=== PATIENT | male | born 1985 | race Caucasian/White ===

== ENCOUNTER 2018-06-17 12:50 | Emergency (ER) | payer MEDICAID, SELFPAY ==
[2018-06-17 12:52] VITALS: BP 148/97; PULSE 92; RESP 20; TEMP 36.7; O2SAT 98; BMI 23.0
--- NOTE | 2018-06-17 13:22 | ED.VISSUMM ---
- ER Visit Summary Date of Service: 06/17/18 Chief Complaint: Recently moved and no medication for 5 days History of Present Illness: The patient is a 33 M who was seen at [facility] and sent to the emergency room because of concern for benzodiazepine withdrawal. He has not taken any Xanax for 5 days. He is not taking the Wellbutrin and Adderall for the past 5 days as well. He just recently moved from [place]. He has not established with a doctor or new therapist. He states he feels as if his chest acrylics bloat and he complains of palpitations shortness of breath and feeling anxious. He denies headache, visual, ocular auditory symptoms. He denies any paresthesia, anesthesia motor weeks. He denies any GI symptoms. Please read written note for complete detail Physical Examination: Vital signs are noted and blood pressure slightly elevated at 148/97. Speech is slightly pressured. HEENT exam is unremarkable. Heart is regular without murmur, gallop or rub. S1 and S2 are normal. Lungs are clear to auscultation with good movement of air bilaterally. Abdomen soft nontender. He has multiple bruises upper and lower extremity, which he reports secondary to bumping into things since he just moved. Patient is alert and oriented ?3. Motor is 5 over 5. Sensory is intact. DTRs are symmetric with no clonus or Babinski sign. Cranial 2 through 12 are intact. Cerebellar testing is normal. Test Results: None Emergency Department Course and Treatment: Refill prescription for Xanax and Wellbutrin Treatment Plan: Prescription for Xanax, Wellbutrin and referral to counseling center Disposition: Discharged home with mother Impression: 1. Anxiety reaction secondary to medication withdrawal 2. History of depression anxiety 3. History of ADD This note was generated with [employer] dictation software. It may contain incorrect words, spelling, and punctuation that were not noted in review of the chart prior to signing ED Disposition - Plan for ED Patient: Disposition: Home or Assisted Living Chief Complaint: Anxiety Instructions: ED Stress React Prescriptions: buPROPion SR [Wellbutrin SR (150mg tablets)] 300 mg PO QHS #30 tablet.sa ALPRAZolam [Xanax] 1 mg PO TID 30 Days #90 tab Referrals: Counseling,Center [GROUP OF PHYSICIANS] - As soon as possible Yesica Perez [NON-STAFF] - As Needed
[2018-06-17 13:54] VITALS: BP 135/95; PULSE 82; RESP 16; O2SAT 97
== END 2018-06-17 13:55 | disposition home or self-care (01) ==
PROVIDERS: Emergency Provider Emergency Medicine
DX: F41.1 Generalized anxiety disorder (principal); F19.239 Other psychoactive substance dependence with withdrawal, unspecified; F41.8 Other specified anxiety disorders; F98.8 Other specified behavioral and emotional disorders with onset usually occurring in childhood and adolescence; Z79.899 Other long term (current) drug therapy
CPT/HCPCS: 93005; 99282

== ENCOUNTER 2021-01-17 15:01 | Outpatient (RCR) | payer MEDICAID, SELFPAY | END 2021-04-01 23:59 | LOC: IMMUN 15:01 | PROVIDERS: PCP Family Medicine; Visit Provider Family Medicine | DX: Z23 Encounter for immunization (principal) | CPT/HCPCS: 0001A; 0002A; 91300 ==